=== PATIENT | male | born 1960 | race Caucasian/White ===

== ENCOUNTER 2019-10-10 02:30 | Inpatient (IN) ==
[2019-10-10] MEDS ORDERED: ASPIRIN ONE (02:43)
[2019-10-10] MEDS ORDERED: DUONEB (A & A) INH ONE (02:47)
[2019-10-10] MEDS ORDERED: SOLU-MEDROL IV ONE (02:48)
--- NOTE | 2019-10-10 02:55 | PROVIDER DOCUMENTATION ---
HPI-Respiratory General - General Chief Complaint: Shortness of Breath Stated Complaint: SOB Time Seen by Provider: 10/10/19 02:47 Source: patient Allergies/Adverse Reactions: Patient Allergies Allergy/AdvReac Type Severity Reaction Status Date / Time No Known Allergies Allergy Verified 08/06/19 15:30 Home Medications: Home Medication List Medication Instructions Recorded Confirmed Last Taken Type Cetirizine [Zyrtec] 10 mg PO DAILY #20 tab 08/06/19 Unknown Rx D-Methorphan/P-Epd/Bpm [Bromfed Dm 5 ml PO Q4H PRN #120 ml 08/06/19 Unknown Rx Liquid] Metformin HCl 1,000 mg PO DAILY 08/06/19 08/06/19 Unknown History Prednisone 20 mg PO DIRECTED #18 tab 08/06/19 Unknown Rx Rosuvastatin Calcium [Crestor] 40 mg PO DAILY 08/06/19 08/06/19 Unknown History Verapamil HCl 1 cap PO DAILY 08/06/19 08/06/19 Unknown History - History of Present Illness-Resp Nature of Presenting Problem: Patient is a 59 year old white male with history of COPD, diabetes,HTN, and tobacco abuse who presents with increasing SOB since this evening. Denies fever, chest pain, productive cough. Followed by PCP in [place]. Onset/Duration: reports: gradual Timing: reports: getting worse Review of Systems - Adult - REVIEW OF SYSTEMS - ADULT Constitutional: denies: chills, fever Eyes: reports: no symptoms reported Ears, Nose, Mouth & Throat: reports: no symptoms reported Cardiovascular: reports: orthopnea. denies: chest pain Respiratory: reports: see HPI, cough, shortness of breath Gastrointestinal: denies: abdominal pain, nausea, vomiting Genitourinary: reports: flank pain (left), hematuria Musculoskeletal: reports: no symptoms reported Integumentary: reports: no symptoms reported Neurological: reports: no symptoms reported Psychiatric: reports: no symptoms reported Endocrine: reports: no symptoms reported Hematologic/Lymphatic: reports: no symptoms reported Allergic/Immunologic: reports: no symptoms reported All Other Systems: Reviewed and Negative Past History - Adult - PAST MEDICAL HISTORY-ADULT Review of Records: reports: Old Records Reviewed, Nursing Assessment Review, Medications Reviewed, Social history reviewed & non-contributory. Major Childhood Illnesses: reports: denies history Cardiovascular: reports: HTN Respiratory: reports: COPD Gastrointestinal: reports: denies history Genitourinary: reports: denies history Musculoskeletal: reports: denies history Neurological: reports: denies history Psychiatric: reports: denies history Endocrine/Immune: reports: denies history - PRIOR SURGERIES/PROCEDURES Surgical/Procedure History: reports: tonsillectomy, other (cervical fusion, brain surgery) - IMMUNIZATION STATUS Childhood Immunizations: See Nurse Assessment Flu Vaccine: See Nurse Assessment - FAMILY HISTORY Family History: reviewed, not pertinent - SOCIAL HISTORY Smoking: less than 1 pack/day Substance Use: denies Alcohol Use Frequency: every day (1beer) Living Situation: family Physical Exam-General - PHYSICAL EXAM-ADULT Initial Vital Signs Reviewed: Yes - CONSTITUTIONAL General Appearance: alert, no apparent distress, obese - EYES Eyes: other (clear) - HEAD, EARS, NOSE, MOUTH & THROAT HENMT: moist mucous membranes - NECK Neck: non-tender, full range of motion, supple - RESPIRATORY Respiratory: no accessory muscle use, decreased breath sounds, wheezing - CARDIOVASCULAR Cardiovascular: regular rate, rhythm, other - GASTROINTESTINAL (ABDOMEN) Abdominal Exam: non tender, soft, other (obese). negative: guarding, rebound, tenderness - MUSCULOSKELETAL Back Exam: normal inspection, no CVA tenderness Extremity: normal range of motion, non-tender Peripheral Pulses: radial (R): 2+, radial (L): 2+ - SKIN Integumentary: normal color, normal turgor, warm/dry - NEUROLOGIC Neurologic: grossly normal - PSYCHIATRIC Psych/Mental Status: oriented x 3, anxious Progress - PLAN OF CARE/RESULTS Progress/Plan/Lab Results: Vital Signs - 8 hr 10/10/19 02:30 Temperature 98.2 F Pulse Rate 98 H Respiratory Rate 20 Blood Pressure 174/121 O2 Sat by Pulse Oximetry 100 10/10/19 03:03 Influenza Screen - Final Nasopharyngeal Laboratory Results - last 24 hr 10/10/19 10/10/19 10/10/19 02:45 02:45 02:45 WBC 12.02 H RBC 5.69 Hgb 17.5 Hct 51.9 MCV 91.2 MCH 30.8 MCHC 33.7 RDW Std Deviation 14.3 Plt Count 211 MPV 10.4 Immature Gran % (Auto) 0.3 Neut % (Auto) 57.6 Lymph % (Auto) 31.8 [place] % (Auto) 8.7 Eos % (Auto) 1.2 Baso % (Auto) 0.4 Immature Gran # (Auto) 0.04 Neut # (Auto) 6.92 H Lymph # (Auto) 3.82 H [place] # (Auto) 1.04 H Eos # (Auto) 0.15 Baso # (Auto) 0.05 Sodium Potassium Chloride Carbon Dioxide Anion Gap BUN Creatinine Estimated GFR/1.73 m2 BUN/Creatinine Ratio Glucose POC Glucose Calculated Osmolality Calcium Total Bilirubin AST ALT Alkaline Phosphatase Troponin T High Sens 40 H Dmg-D-Kvnyofilunh Pept 751 H Total Protein Albumin Globulin Albumin/Globulin Ratio 10/10/19 10/10/19 02:45 02:48 WBC RBC Hgb Hct MCV MCH MCHC RDW Std Deviation Plt Count MPV Immature Gran % (Auto) Neut % (Auto) Lymph % (Auto) [place] % (Auto) Eos % (Auto) Baso % (Auto) Immature Gran # (Auto) Neut # (Auto) Lymph # (Auto) [place] # (Auto) Eos # (Auto) Baso # (Auto) Sodium 141 Potassium 4.3 Chloride 105 Carbon Dioxide 25 Anion Gap 11 BUN 14 Creatinine 1.1 Estimated GFR/1.73 m2 > 60 BUN/Creatinine Ratio 13 Glucose 173 H POC Glucose 124 H Calculated Osmolality 286 Calcium 8.9 Total Bilirubin 0.50 AST 20 ALT 20 Alkaline Phosphatase 56 Troponin T High Sens Evt-K-Matcqhhgbdb Pept Total Protein 6.7 Albumin 3.9 Globulin 2.8 Albumin/Globulin Ratio 1.4 Orders Category Date Time Status Cardiac Monitoring DIRECTED Care 10/10/19 02:48 Active FSBS/Accucheck Result NOW Care 10/10/19 02:51 Active Saline Loc NOW Care 10/10/19 02:49 Active CHEST-PORTABLE [RAD] Stat Exams 10/10/19 02:49 Taken BNP [PRO B-NATRIURETIC PEPTIDE] Stat Lab 10/10/19 02:45 Completed CBC WITH ELECTRONIC DIFF [HEME] Stat Lab 10/10/19 02:45 Completed CMP [COMPREHENSIVE METABOLIC PANEL] [CHEM] Stat Lab 10/10/19 02:45 Completed D-DIMER [COAG] Stat Lab 10/10/19 04:30 Uncollected INFLUENZA SCREEN A/B Stat Lab 10/10/19 03:03 Completed TROPONIN T HIGH SENSITIVITY Stat Lab 10/10/19 02:45 Completed Albuterol 2.5MG/Ipratrop 0.5MG [Duoneb (A & A)] Med 10/10/19 02:47 Discontinued 3 ml INH NOW ONE Aspirin Med 10/10/19 02:43 Discontinued 324 mg .ROUTE .STK-MED ONE Furosemide [Lasix] Med 10/10/19 04:34 Once 40 mg IV NOW ONE Methylprednisolone Sod Succ [Solu-Medrol] Med 10/10/19 02:48 Discontinued 125 mg IV STAT ONE Aerosol Treatments Routine Oth 10/10/19 02:47 Active Aerosol Treatments Stat Oth 10/10/19 02:47 Active Oxygen Device Stat Oth 10/10/19 02:48 Active Pulse Oximetry Stat Oth 10/10/19 02:52 Active EKG [EKG] Stat Ther 10/10/19 02:48 Ordered Result Diagrams: 10/10/19 02:45 10/10/19 02:45 - REASSESSMENT Reassessment #1 Time Reassessed: 04:25 Status: improving - EKG 1 Time of EKG reading by physician:: 02:33 EKG Read and Signed by:: Uriah Shepherd Rate: 104 Rhythm: sinus tach, [place]: left QRS: other (LAE) Prior EKG Comparison: no prior EKG Comments: no STEMI - XRAY 1 XRAY Study: Chest XRAY Interpretation: increased vascular markings, no infiltrates - CONSULTS/PCP/HOSPITALIST Notification #1 *Consult/PCP/Hospitalist*: Dr. Saldana, hospitalist Time Discussed: 04:35 Consult Disposition: Admit Departure - Departure Date of Disposition Decision: 10/10/19 Time of Disposition Decision: 04:44 DIAGNOSIS: COPD exacerbation, Orthopnea, Hypoxemia Disposition: ADMITTED INPATIENT 09 Certified Medical Emergency: Emergent Condition: Stable Referrals and Follow-Ups: Yifan Smith [Primary Care Provider] - - Critical Care Note This patient required my direct & personal management of CC.: No Attestation - Physician/ MARTA Attestation Patient care was provided by Advanced Practice Provider:: No The physician spent face to face time with patient:: Yes Advanced Practice Provider documentation review:: Supervising physician onsite and consulted in the evaluation and care of this patient. The physician did have a face to face encounter with the patient.
[2019-10-10 03:06] LABS: BASO# 0.05 X1000 (0.0-0.2); BASO% 0.4 % (0.0-0.8); EOS# 0.15 X1000 (0.0-0.7); EOS% 1.2 % (0.0-10.0); HEMATOCRIT 51.9 % (42.0-52.0); HEMOGLOBIN 17.5 g/dL (14.0-18.0); IMM GRAN# 0.04 X1000 (0.0-0.04); IMM GRAN% 0.3 % (0.0-0.5); LYMPH# 3.82 X1000 (1.2-3.4); LYMPH% 31.8 % (20.5-51.1); MCH 30.8 PG (27-31); MCHC 33.7 g/dL (33-37); MCV 91.2 FL (81-99); MONO# 1.04 X1000 (0.11-0.59); MONO% 8.7 % (1.7-9.3); MPV 10.4 FL (7.4-10.4); NEUT# 6.92 X1000 (1.4-6.5); NEUT% 57.6 % (42.2-75.2); PLT 211 X1000 (130-400); RBC 5.69 XMIL (4.7-6.1); RDW 14.3 % (11.5-14.5); WBC 12.02 X1000 (4.8-10.8)
[2019-10-10 03:26] LABS: AGAP 11; ALB/GLOB RATIO 1.4; ALBUMIN 3.9 g/dL (3.5-5.0); ALKALINE PHOSPHATASE 56 U/L (32-122); BUN 14 mg/dL (8-22); CALCIUM 8.9 mg/dL (8.8-10.2); CHLORIDE 105 mmol/L (98-107); COSMO 286; CREATININE 1.1 mg/dL (0.7-1.2); ESTIMATED GFR > 60; GLUCOSE 173 mg/dL (70-104); GOT 20 U/L (10-34); GPT 20 U/L (10-44); POTASSIUM 4.3 mmol/L (3.5-5.1); SODIUM 141 mmol/L (136-145); TCO2 25 mmol/L (25-35); TOTAL PROTEIN 6.7 g/dL (6.3-8.3)
[2019-10-10] MEDS ORDERED: LASIX IV ONE (04:34)
[2019-10-10] MEDS ORDERED: ZOFRAN IV PRN (08:01)
[2019-10-10] MEDS ORDERED: TYLENOL PO PRN (08:01)
[2019-10-10] MEDS: LOVENOX SUBQ SCH (10:34)
[2019-10-10] MEDS: SOLU-MEDROL IV SCH ×2 (10:34→20:55)
[2019-10-10] MEDS: ROCEPHIN 1 GM in NS 50 ML IV SCH (10:34)
--- NOTE | 2019-10-10 10:59 | Diag Imaging Result Doc PS360 ---
EXAM: CHEST-PORTABLE INDICATION: sob TECHNIQUE: One view COMPARISON: 08/06/2019 FINDINGS: There is mild interstitial thickening with faint Jacquelyn B lines bilaterally suggesting mild interstitial edema. There is no discrete pleural fluid collection or pneumothorax. There is no evidence of cardiomegaly. IMPRESSION: Mild bilateral interstitial edema. Electronically signed by Samuel Recio 10/10/2019 10:56 AM
[2019-10-10] MEDS ORDERED: XOPENEX NEB INH PRN (14:26)
--- NOTE | 2019-10-10 15:05 | PROGRESS NOTE ---
DATE: 10/10/2019 SUBJECTIVE: Today Mr. Hanson refers to be doing fairly okay. Mr. Hanson refers that he was having some cough which progressively became associated with shortness of breath last night. He said a friend of his has an albuterol inhaler, so he took a few puffs of that and he did feel better; however, a couple hours later he continued having shortness of breath with sensation of tightness in his throat. He came to the emergency room. He was evaluated. On presentation his blood pressure was very elevated with systolic of 174 with a diastolic of 121. Today he refers to be doing slightly better. He said the shortness of breath has improved. OBJECTIVE: Current Vitals: Blood pressure is 135/83, pulse of 85, respirations 20, temperature 97.7 degrees. General Exam: Mr. Hanson is a 59-year-old, male, he is in bed. He is obese, BMI of 32.3. He is not in any cardiopulmonary distress. HEENT: Mucosa is pink and moist. Anicteric. Acyanotic. Neck: Supple. I did not see any JVD. Chest: Air entry was bilaterally reduced. There was end-expiratory wheezing in both lung mckeon. Cardiovascular: Regular rate and rhythm. No murmurs. Abdomen: Was soft, was protuberant but not tender. Bowel sounds were present. No hepatosplenomegaly. Extremities: No pedal edema. Distal pulses present. HOTEL CUSTODIAN: Patient is awake, alert, oriented. There is no focal deficit. LABORATORY DATA: WBC is 12.02, hemoglobin is 17.5. Chemistry is also reviewed, is unremarkable. The patient's troponin is 40, which is minimally elevated, proBNP is 751, which is also abnormal. IMAGING: A chest x-ray which was done showed mild bilateral interstitial edema. An EKG shows a normal sinus rhythm with multiple PVCs and a poor R-wave progression. ASSESSMENT: 1. Acute dyspnea associated with bronchospasm, of unclear etiology, presumably is undiagnosed COPD exacerbation. However, I think we will also need to rule out cardiac causes. Mr. Hanson is currently on nebulization, antibiotics which we have added azithromycin for atypicals, and on steroids. We will get a repeat chest x-ray in the morning. We will also get a CTA of the lungs to rule out any possible PE and also get a very close view of the lung anatomy. We will get an echocardiogram to check on ejection fraction as well, since the proBNP is slightly elevated. Mr. Hanson has a lot of cardiac risk factors, which I think it is plausible to evaluate his cardiac health. 2. Diabetes mellitus. Patient is only on metformin. He said he was on a [place]je[place] at some point; however, after losing more than 60 pounds, his A1c was far below 5 so has been put on only metformin recently. 3. Tobacco use and abuse. Patient has been counseled. 4. Hypertension. 5. Dyslipidemia. In general I think Mr. Hanson presented with acute dyspnea with bronchospasm, which could be a COPD exacerbation or a cardiac event. We are going to do a CT of the lungs. We will get an echo of the heart. Repeat a chest x-ray and follow up on her his troponins as well as the proBNP, and then go from there. We will give further recommendations as results become available. cc: Willian Elliott MD
[2019-10-10] MEDS: ZITHROMAX 500 MG/NS 500 MG/250 ML IVPB IV SCH (16:00)
[2019-10-10] MEDS: HUMULIN R SUBQ SCH ×2 (16:00→20:55)
[2019-10-10] MEDS ORDERED: HUMULIN R SUBQ SCH (16:00)
[2019-10-10] MEDS: XOPENEX NEB INH SCH ×2 (16:07→22:58)
--- NOTE | 2019-10-10 17:47 | EKG Report ---
Test Performed on : 10/10/2019 02:31:09 AM Test Reason : pain Blood Pressure : / mmHG Vent. Rate : 104 BPM Atrial Rate : 104 BPM P-R Int : 142 ms QRS Dur : 090 ms QT Int : 380 ms P-R-T Axes : 056 -25 077 degrees QTc Int : 499 ms Sinus tachycardia. with frequent premature ventricular complexes. Possible Left atrial enlargement Possible Anterior infarct , age undetermined Abnormal ECG No previous ECGs available Unconfirmed Result
--- NOTE | 2019-10-10 18:30 | Diag Imaging Result Doc PS360 ---
EXAM: CT ANGIOGRM PULMONARY ARTERIES INDICATION: chest pain with SOB TECHNIQUE: This exam was performed using automated exposure control, adjustment of mA or kV according to patient size, and/or use of iterative reconstruction technique. Thin section axial images and 3-D MIPS were obtained. COMPARISON: None. FINDINGS: There is no evidence of pulmonary embolism. There is no evidence of aortic dissection or aneurysm. There is no cardiomegaly. There are a few calcified subcarinal lymph nodes indicating prior granulomatous disease. There are other small shotty nonspecific mediastinal and hilar lymph nodes. There are trace bilateral pleural effusions and there is mild bibasilar atelectasis. There is very mild interstitial thickening at both lung bases suggesting minimal edema. Limited views of the upper abdomen reveals hepatic steatosis. IMPRESSION: 1.Minimal interstitial edema at the lung bases and trace bilateral pleural effusions with adjacent atelectasis. 2.No evidence of pulmonary embolism. 3.Other incidental/nonacute findings detailed above. Electronically signed by Samuel Recio 10/10/2019 6:28 PM
--- NOTE | 2019-10-10 21:58 | HISTORY AND PHYSICAL ---
CHIEF COMPLAINT: Shortness of breath. HISTORY OF PRESENT ILLNESS: This is a 59-year-old male with a history of COPD, diabetes mellitus, hypertension, tobacco abuse, who presents with increasing shortness of breath. He denies fever, chest pain, productive cough, nausea, vomiting, diarrhea. He came in last night after having progressive shortness of breath. His laboratory data was grossly normal. He did have minimal wheeze on examination in the emergency room. He was originally given some Lasix for mild interstitial edema. The patient started resting more comfortably after having Lasix and nebulizer treatment. He was also given a dose of steroids. He will be admitted for further evaluation and treatment. PAST MEDICAL HISTORY: See HPI. PREVIOUS SURGICAL HISTORY: Cervical fusion. Also had brain surgery and tonsillectomy. SOCIAL HISTORY: 3/4 of a pack a day smoker. One beer nightly. No illicit drugs. FAMILY HISTORY: Positive for coronary artery disease and hypertension. ALLERGIES: No known drug allergies. HOME MEDICATIONS: A list of home medications has not been reconciled. Order was placed for Nursing to reconcile home medications. These will be restarted when appropriate. REVIEW OF SYSTEMS: Fourteen-point review of systems conducted with the patient. Pertinent positives listed above in the HPI. All other systems reviewed and found to be negative. PHYSICAL EXAMINATION: VITAL SIGNS: Temperature 98.2, pulse 98, respirations 20, blood pressure 174/121, oxygen saturation 100% on 2 L nasal cannula. GENERAL: A pleasant 59-year-old male lying in the ER stretcher, answered all questions appropriately. He is in no acute distress. HEENT: Head is atraumatic, normocephalic. Pupils equal, round, reactive to light. Extraocular eye movement is intact. Sclera is anicteric. Conjunctiva is pink. Oral mucosa is moist. NECK: Supple. No JVD. No thyromegaly. Trachea is midline. No cervical lymphadenopathy. CARDIAC: S1, S2 appreciated. No murmurs, gallops, rubs. LUNGS: Mild expiratory wheezing bilaterally. No rhonchi. No rales. Symmetric rise and fall with respirations. ABDOMEN: Soft, nondistended, nontender. Bowel sounds present all 4 quadrants, normoactive. No pulsatile mass. No organomegaly. EXTREMITIES: No clubbing, cyanosis or edema. Two-plus pedal pulses bilaterally. GENITOURINARY: No bladder distention. Patient voids. Otherwise deferred. NEUROLOGICAL: Alert and oriented times 3. Cranial nerves 2 through 12 grossly intact. DIAGNOSTIC DATA: Chest x-ray shows mild interstitial edema in bilateral lungs. LABORATORY DATA: WBC 12.02. Hemoglobin 17.5. Hematocrit 51.9. Platelet count 211. Sodium 141. Potassium 4.3. Chloride 105. Carbon dioxide 25. BUN 14. Creatinine 1.1. Glucose 173. ASSESSMENT: 1. Chronic obstructive pulmonary disease with exacerbation. 2. Hypertension. 3. Diabetes mellitus type 2. 4. Hyperlipidemia. PLAN: Admit patient to the medical floor. Hobs. Solu-Medrol 40 mg IV q.8 hours times 3 doses. We will start Rocephin in case it is a bacterial cause for his COPD exacerbation. He received 1 dose of Lasix. We will not repeat at this time. We will continue to monitor. We will restart his home medications once they are reconciled. Further recommendations per patient clinical course. Dictated by JULIETA Carmona for Edmond Saldana MD I have performed a face to face diagnostic evaluation. Labs/Xrays- reviewed. Exam- Chest - rhonchi, CV- regular A/P- COPD Exacerbation- Admit, duo nebs,solu-medrol. Dr. Saldana cc: JULIETA Carmona MD [facility]
[2019-10-11] MEDS: HUMULIN R SUBQ SCH ×5 (02:23→23:50)
[2019-10-11] MEDS: SOLU-MEDROL IV SCH ×3 (03:02→20:42)
[2019-10-11] MEDS ORDERED: PNEUMOVAX 23 IM ONE (06:14)
[2019-10-11 07:57] LABS: HEMOGLOBIN A1C 8.8 % (4.8-6.0)
[2019-10-11 08:00] LABS: CHOLESTEROL 215 mg/dL (0-200); HDL 35 mg/dL (35-55); LDL 143 mg/dL; TRIGLYCERIDES 187 mg/dL (39-160); VLDL 37 mg/dL
[2019-10-11 08:29] LABS: AGAP 13; BUN 22 mg/dL (8-22); CHLORIDE 101 mmol/L (98-107); COSMO 294; CREATININE 1.1 mg/dL (0.7-1.2); ESTIMATED GFR > 60; GLUCOSE 335 mg/dL (70-104); POTASSIUM 4.8 mmol/L (3.5-5.1); SODIUM 139 mmol/L (136-145); TCO2 25 mmol/L (25-35)
[2019-10-11] MEDS ORDERED: ISOPTIN SR PO SCH (09:00)
[2019-10-11] MEDS: XOPENEX NEB INH SCH ×3 (09:18→23:53)
--- NOTE | 2019-10-11 09:36 | EKG Report ---
Test Performed on : 10/11/2019 06:16:37 AM Test Reason : Afib Blood Pressure : / mmHG Vent. Rate : 102 BPM Atrial Rate : 102 BPM P-R Int : 150 ms QRS Dur : 100 ms QT Int : 384 ms P-R-T Axes : 058 -05 079 degrees QTc Int : 500 ms Sinus tachycardia. Otherwise normal ECG When compared with ECG of 10-OCT-2019 02:31, (Unconfirmed) premature ventricular complexes. are no longer present Confirmed by Gamal Gordillo MD ([id number]) on 10/14/2019 12:12:52 PM
[2019-10-11] MEDS: LOVENOX SUBQ SCH (09:47)
[2019-10-11] MEDS: ROCEPHIN 1 GM in NS 50 ML IV SCH (09:47)
[2019-10-11] MEDS: LANTUS INSULIN SUBQ SCH (09:49)
[2019-10-11] MEDS: CRESTOR PO SCH (09:49)
--- NOTE | 2019-10-11 12:42 | PROGRESS NOTE ---
DATE: 10/11/2019 SUBJECTIVE: This morning, Mr. Hanson refers to be doing well. Denies any new complaints. He is still coughing and has some residual shortness of breath. OBJECTIVE: Vital Signs: Blood pressure is 136/93, pulse of 103, respirations 20, temperature is 97.3 degrees. General: Mr. Hanson is a 59-year-old, gentleman. He is in bed. No distress. HEENT: Mucosa is pink and moist. Anicteric. Acyanotic. Neck: Supple. Chest: Air entry is bilaterally reduced. There is still diffuse end expiratory wheezing in both lung mckeon. Cardiovascular: Regular rate and rhythm. No murmurs, no rubs, no gallops. GI: Abdomen is soft. It is protuberant, but nontender. Bowel sounds present. No hepatosplenomegaly. Extremities: No pedal edema. LINUX SYSTEMS ADMINISTRATOR: The patient is awake, alert, and oriented. There is no focal deficit. LABORATORY DATA: Chemistry is unremarkable. Glucose is 335, with A1c of 8.8. Lipid panel is also evaluated, consistent with dyslipidemia. MEDICATIONS: Current medications have all been reviewed. No changes. ASSESSMENT: 1. Acute dyspnea associated with bronchospasm, presumably from chronic obstructive pulmonary disease exacerbation. The patient is on bronchodilation therapy, antimicrobial, and steroids. We are going to continue to monitor. If after another 24 hours, Mr. Hanson is not improved, I think it would be reasonable to get Pulmonary to see him as well. 2. Pulmonary edema with pleural effusion. There is a suspicion that Mr. Hanson could potentially also have congestive heart failure. ProBNP was slightly elevated. Echocardiogram has been requested, and we are pending the results. 3. Diabetes mellitus. Presenting A1c is 8.8. The patient was on metformin at home. This is withheld. He is currently on insulin regimen. I think he will be okay to go home on metformin with another oral hypoglycemic once he is stable for discharge. 4. Tobacco use and abuse. The patient has been counseled. 5. Hypertension. The patient was on verapamil, which according to him was for blood pressure control. Unfortunately, he said he cannot afford it at home, so he wants it to be changed. We will discontinue the verapamil, and put him on low-dose losartan as well as Coreg. 6. Dyslipidemia. The patient has been started on Crestor. In general, I think Mr. Hanson is doing well. He presented because of dyspnea with bronchospasm, which we think is mainly chronic obstructive pulmonary disease exacerbation. However, I think cardiac cause will need to be ruled out, especially because he has bilateral pleural effusion. Echocardiogram has been ordered. We are pending on the results of that. cc: Willian Elliott MD
[2019-10-11] MEDS: NICODERM PATCH TD SCH (12:59)
[2019-10-11] MEDS: LASIX IV SCH ×2 (14:00→23:49)
[2019-10-11] MEDS: COZAAR PO SCH (14:43)
--- NOTE | 2019-10-11 15:12 | ECHO REPORT ---
ORDER DATE: 10/10/2019 INDICATION: Shortness of breath, COPD. FINDINGS: 1. Right atrium appears normal in size. 2. Mild tricuspid regurgitation. Insufficient data to accurately estimate RV systolic pressure. 3. Normal RV size and systolic function. 4. No significant pulmonic insufficiency. 5. Normal left atrial size with a volume index of 21. 6. No mitral valve prolapse. Mild mitral regurgitation. No mitral stenosis. 7. The left ventricle does appear to be somewhat dilated with an end-diastolic dimension of 5.5 cm. Mild left ventricular hypertrophy with a posterior and interventricular septal thickness of 1.2 and 1.3 cm respectively. There is reduction in LV systolic function with an estimated EF of 40% with global hypokinesis. 8. Aortic valve opens well. No evidence of stenosis or insufficiency. 9. Aorta appears normal in visualized segments. 10. No pericardial effusion seen. cc: MD Willian Javed MD
[2019-10-11] MEDS: ZITHROMAX 500 MG/NS 500 MG/250 ML IVPB IV SCH (15:30)
[2019-10-11] MEDS: COREG PO SCH (20:42)
[2019-10-12] MEDS: HUMULIN R SUBQ SCH ×5 (01:31→22:58)
[2019-10-12] MEDS: SOLU-MEDROL IV SCH ×2 (04:31→11:57)
[2019-10-12 07:24] LABS: HEMATOCRIT 48.3 % (42.0-52.0); HEMOGLOBIN 15.6 g/dL (14.0-18.0); MCHC 32.3 g/dL (33-37); MCV 92.9 FL (81-99); RBC 5.2 XMIL (4.7-6.1); RDW 14.4 % (11.5-14.5); WBC 18.26 X1000 (4.8-10.8)
[2019-10-12 07:52] LABS: AGAP 13; ALBUMIN 3.2 g/dL (3.5-5.0); BUN 26 mg/dL (8-22); CALCIUM 8.5 mg/dL (8.8-10.2); CHLORIDE 103 mmol/L (98-107); COSMO 294; ESTIMATED GFR > 60; GLUCOSE 277 mg/dL (70-104); PHOSPHORUS 3.7 mg/dL (2.7-4.5); POTASSIUM 4.5 mmol/L (3.5-5.1); SODIUM 140 mmol/L (136-145); TCO2 24 mmol/L (25-35)
[2019-10-12] MEDS: NICODERM PATCH TD SCH (09:01)
[2019-10-12] MEDS: LOVENOX SUBQ SCH (09:03)
[2019-10-12] MEDS: LANTUS INSULIN SUBQ SCH (09:03)
[2019-10-12] MEDS: ROCEPHIN 1 GM in NS 50 ML IV SCH (09:04)
[2019-10-12] MEDS: CRESTOR PO SCH (09:05)
[2019-10-12] MEDS: COREG PO SCH ×2 (09:05→22:58)
[2019-10-12] MEDS: COZAAR PO SCH (09:05)
[2019-10-12] MEDS: XOPENEX NEB INH SCH ×3 (10:44→23:03)
[2019-10-12] MEDS: LASIX IV SCH ×3 (11:58→22:56)
[2019-10-12] MEDS ORDERED: HUMULIN R SUBQ ONE (14:12)
[2019-10-12] MEDS: ZITHROMAX 500 MG/NS 500 MG/250 ML IVPB IV SCH (14:20)
--- NOTE | 2019-10-12 14:47 | CARDIOLOGY CONSULTATION ---
DATE: 10/12/2019 REASON FOR CONSULTATION: Cardiology was consulted for shortness of breath, LV dysfunction. HISTORY OF PRESENT ILLNESS: Mr. Jame Hanson is a 59-year-old, gentleman with history of hypertension, diabetes, tobacco abuse. He comes in with complaints of increasing shortness of breath. He says that his shortness of breath suddenly worsened on Saturday. Had his friend's inhaler, which he took, and that helped his symptoms. However, progressively it got worse. Came to the emergency room, became orthopneic, and he was admitted. He had a CT scan done, which revealed mild heart failure. There was no pulmonary embolism. He was given Lasix. He also was diagnosed to have COPD, started on inhalers and IV antibiotics. He also had some coughing associated with this worsening of his symptoms, noted to have significant wheezing in the emergency room. He had seen his family physician about 3 to 4 months back in [place]. However, the patient complains of having dyspnea on significant exertion over the last 2 years, and in the last 6 months, he has noticed when he exerts significantly, he has retrosternal chest discomfort. With minimal exertion, he does not have chest discomfort. Otherwise, he is very active, works in a company in [place]. There is no history of palpitations. There is no dizziness or syncope. PAST MEDICAL HISTORY: Hypertension, diabetes, COPD (recent diagnosis). SOCIAL HISTORY: The patient is a smoker, smokes about 3/4 of a pack of cigarettes daily, has smoked for at least 40 years. There is no history of alcohol or illicit drug abuse. PAST SURGICAL HISTORY: 1. Cervical fusion. 2. Intracranial surgery for a tumor removed in the 1970s. 3. Tonsillectomy. HOME MEDICATIONS: Include: 1. Metformin 1000 mg a day. 2. Crestor 40 mg a day. 3. Verapamil 340 mg a day. CURRENT MEDICATIONS: Include: 1. Coreg 3.125 mg. 2. Verapamil has been discontinued. 3. Losartan 25 mg a day. 4. Insulin Lantus 15 subcutaneously, insulin regular as needed. 5. Nebulizers. 6. Methylprednisone 40 mg IV every 8 hours. 7. Nicotine patch. 8. Ceftriaxone and Zithromax intravenously. PHYSICAL EXAMINATION: Vital Signs: Blood pressure was 135/90. The patient was afebrile. Cardiovascular: Jugular sinus pressure was normal. First and second heart sounds were heard. There was no S3 gallop. Respiratory: Scattered inspiratory crepitations in addition to wheezing. Abdomen: Obese, soft, nontender. There was no guarding or rigidity. Bowel sounds were heard. Central Nervous System: Alert, oriented, was moving all 4 extremities. HEENT: Atraumatic, normocephalic. Pupils were reacting to light. IMAGING AND LABORATORY DATA: 1. Laboratory examination revealed flu screen was negative. 2. Sodium 140, potassium 4.5, BUN 26, creatinine 1.0. ProBNP abnormal at 751. 3. Troponin T high-sensitivity was negative. 4. WBC 12.0, hemoglobin 17.5, hematocrit 51.9, platelet count of 211,000. 5. CT scan of his chest revealed minimal interstitial edema, bilateral pleural effusion, no pulmonary embolism. 6. Electrocardiogram revealed normal sinus rhythm. Premature ventricular beats were noted. Left atrial enlargement. Poor R-wave progression. 7. Echocardiogram revealed ejection fraction of 40% with mild global hypokinesis. ASSESSMENT AND PLAN: 1. Mr. Jame Hanson is a 59-year-old, gentleman with history of hypertension, diabetes, chronic smoking, recent diagnosis of chronic obstructive pulmonary disease, who is admitted with increasing shortness of breath and orthopnea. From a cardiac standpoint, he has been having exertional chest discomfort for the last 6 months, and shortness of breath on significant exertion for the last 2 years. He is a chronic smoker, having smoked about 3/4 of a pack of cigarettes for the last 40 years. He has left ventricular dysfunction. From a cardiac standpoint, the patient has ongoing anginal symptoms with left ventricular dysfunction, hypertension, and diabetes. Given this, I have recommended that he undergo a left heart catheterization. Risks, benefits, and alternatives were explained. The patient will be set up for a left heart catheterization in the morning if his pulmonary function has improved. 2. I will give him an extra dose of Lasix, and increase it to 40 mg intravenously twice daily. 3. Given his left ventricular dysfunction, he is on Coreg and losartan, and his verapamil has been discontinued. 4. Diabetes. Continue with medications as planned. 5. Hyperlipidemia. He has been on Crestor 20. I would recommend continuing Crestor. I will add aspirin 81 mg to his medical regimen. 6. He is a smoker, has chronic obstructive pulmonary disease, has wheezing as well, in addition to inspiratory crepitations. He is on antibiotics and nebulizers. I have not made any changes. White count increases secondary to corticosteroids which have been added. Thank you for the consult. Will follow hospital course. cc: Parminder Hamilton MD
--- NOTE | 2019-10-12 14:53 | PROGRESS NOTE ---
DATE: 10/12/2019 SUBJECTIVE: The patient states that he is feeling better, but we have a new echocardiogram that showed an ejection fraction of 40% with some global hypokinesis. He has been complaining of some chest pain even before coming to the hospital. He has a history of diabetes with a hemoglobin A1c of 8.8. On top of that, he is a smoker, so it sounds more cardiac related to me. I went ahead and consulted Cardiology Department for evaluation. OBJECTIVE: Vital Signs: Temperature 97.8 degrees, pulse 50, respiratory rate 16, blood pressure 135/90, oxygen saturation 99 on 3 L of nasal cannula. HEENT: Head normocephalic. No trauma. PERRLA. Neck: Supple. No JVD. No masses. Central trachea. Chest: Clear to auscultation. Some crepitus at the bases. Decreased breath sounds globally. No wheezing today. Abdomen: Soft, nontender, nondistended. No hepatosplenomegaly. Protuberant. Extremities: No edema, no clubbing, no cyanosis. Neurological: The patient is awake, alert. He is oriented x3. No focal deficits. LABORATORY DATA: WBC 18.2, hemoglobin 15.6, hematocrit 48.3, platelets 213,000. Sodium 140, potassium 4.5, chloride 103, bicarbonate 24, BUN 26, creatinine 1, glucose 277, calcium 8.5. Phosphorus 3.7. ASSESSMENT AND PLAN: 1. Shortness of breath with pulmonary edema and some chest pain that actually has been happening even before admission, with a new echocardiogram that showed an ejection fraction of 40%. Cardiology Department evaluated this patient. They will do a cardiac catheterization tomorrow. Nothing by mouth after midnight. 2. New-onset congestive heart failure. He has been placed on beta blockers, angiotensin-receptor blockers, and Lasix. Cardiology on board. 3. Likely chronic obstructive pulmonary disease exacerbation. I have decreased the dose of the steroids because he is not wheezing today. He does have prolonged expiratory phase though. We do not have a formal pulmonary function test on this patient, but given his history of smoking of 1-1/2 packs a day, likely this patient has chronic obstructive pulmonary disease. Continue with the same management. I will decrease the dose of the steroids. 4. Type 2 diabetes with a hemoglobin A1c of 8.8. Continue with the same management for now. Blood sugar has been more elevated due to steroids. 5. Tobacco abuse. This patient has been highly advised against tobacco use. I will continue with daily cessation education. 6. Hypertension. Continue with the same management for now. He has been placed on losartan and Coreg. 7. Dyslipidemia. We have started this patient on Crestor. cc: Dick Turcios MD
[2019-10-12] MEDS ORDERED: BENADRYL PO ONE (22:31)
[2019-10-13 06:59] LABS: BASO# 0.01 X1000 (0.0-0.2); BASO% 0.1 % (0.0-0.8); HEMATOCRIT 51.2 % (42.0-52.0); HEMOGLOBIN 16.3 g/dL (14.0-18.0); IMM GRAN# 0.07 X1000 (0.0-0.04); IMM GRAN% 0.4 % (0.0-0.5); LYMPH# 3.84 X1000 (1.2-3.4); LYMPH% 22.4 % (20.5-51.1); MCH 29.6 PG (27-31); MCHC 31.8 g/dL (33-37); MCV 93.1 FL (81-99); MONO# 1.35 X1000 (0.11-0.59); MONO% 7.9 % (1.7-9.3); MPV 10.7 FL (7.4-10.4); NEUT# 11.89 X1000 (1.4-6.5); NEUT% 69.2 % (42.2-75.2); PLT 214 X1000 (130-400); RDW 14.4 % (11.5-14.5); WBC 17.16 X1000 (4.8-10.8)
[2019-10-13 07:04] LABS: INR 0.99; PROTIME 13.2 Seconds (11.0-16.0)
[2019-10-13 07:15] LABS: CALCIUM 8.8 mg/dL (8.8-10.2); CREATININE 1.5 mg/dL (0.7-1.2)
[2019-10-13] MEDS: HUMULIN R SUBQ SCH ×4 (08:04→20:59)
[2019-10-13] MEDS: SODIUM BICARBONATE 8.4% 150 MEQ in D5W 1,000 ML IV SCH (08:47)
[2019-10-13] MEDS: NICODERM PATCH TD SCH (08:52)
[2019-10-13] MEDS: LOVENOX SUBQ SCH (08:56)
[2019-10-13] MEDS: ROCEPHIN 1 GM in NS 50 ML IV SCH (08:56)
[2019-10-13] MEDS: COREG PO SCH ×2 (08:59→20:59)
[2019-10-13] MEDS: ASPIRIN PO SCH (08:59)
[2019-10-13] MEDS: CRESTOR PO SCH (08:59)
[2019-10-13] MEDS ORDERED: SOLU-MEDROL IV SCH (09:00)
[2019-10-13] MEDS: XOPENEX NEB INH SCH ×3 (09:49→22:59)
--- NOTE | 2019-10-13 10:01 | PROGRESS NOTE ---
DATE: 10/13/2019 SUBJECTIVE: The patient seems to be stable. His BUN and creatinine increased compared with yesterday. I will stop the Lasix and also I will hold the losartan for now. Cardiology is planning to do a left heart catheterization today. He has been placed on IV fluids with D5, bicarb by cardiology department. We will monitor this patient closely. He has a negative balance of 8.1 L. OBJECTIVE: Vital Signs: Temperature 97.7 degrees, pulse 77, respiratory rate 18, blood pressure 130/91, oxygen saturation 100% on 2 L of nasal cannula. HEENT: Head normocephalic. No trauma. PERRLA. Neck: Supple. No JVD. No masses. Central trachea. Chest: Clear to auscultation. No wheezing. No rales. Abdomen: Soft, nontender, nondistended. Protuberant. No hepatosplenomegaly. Extremities: No edema, no clubbing, no cyanosis. Neurological Examination: The patient is awake and alert. He is oriented x3. No focal deficits. Laboratory: WBCs 17, hemoglobin 16.3, hematocrit 51.2, platelets 214,000. Sodium 141, potassium 5, chloride 100, bicarbonate 32, BUN 32, creatinine 1.5, glucose 280, calcium 8.8. ASSESSMENT AND PLAN: 1. Shortness of breath with pulmonary edema and some chest pain that actually has been happening even before admission. New echocardiogram showed an ejection fraction of 40%. Cardiology department evaluated this patient. He will go for a cardiac catheterization today. 2. New onset congestive heart failure. He has been placed on beta blockers, angiotensin-receptor blockers, and Lasix. I will hold the Lasix for now as well as the beta oliver because of his acute kidney injury. 3. Acute kidney injury, probably due to diuretics. This patient responded to the furosemide really well so we need to be careful about it. 4. Type 2 diabetes with a hemoglobin A1c of 8.8. Continue with the same management for now. Elevated glucose level is likely due to steroids. 5. Likely chronic obstructive pulmonary disease exacerbation. I will stop the steroids today because this patient's breathing is much better. He is not wheezing. Continue breathing treatments, though. 6. Tobacco use. This patient has been highly advised against tobacco use. I will continue with daily cessation education. 7. Hypertension. Continue with the same management for now. 8. Dyslipidemia. Continue with Crestor. cc: Dick Turcios MD
[2019-10-13] MEDS ORDERED: HEPARIN 1000 UNITS/NS 2,000 UNIT/1,000 ML IV.SOLN ONE (10:23)
[2019-10-13] MEDS ORDERED: NS 1,000 ML ONE (11:22)
[2019-10-13] MEDS ORDERED: ANESTHESIA PB SET 88 IN 5742 ONE (11:22)
[2019-10-13] MEDS ORDERED: DEMEROL ONE (11:27)
[2019-10-13] MEDS ORDERED: VERSED ONE (11:28)
--- NOTE | 2019-10-13 12:50 | CARDIAC CATH REPORT ---
DATE: 10/13/2019 PROCEDURES PERFORMED: 1. Left heart catheterization. 2. Selective bilateral coronary arteriography. 3. Left ventriculography. HISTORY: This is a 59-year-old male who presented to the emergency room with dyspnea, chest discomfort. Noninvasive evaluation suggests cardiomyopathy. Coronary calcification is noted on CT of the chest. Heart catheterization is recommended to define etiology of his congestive heart failure and cardiomyopathy. The benefits, risks and complications were discussed. He understood and requested to proceed. DESCRIPTION OF PROCEDURE: The patient came into the cardiac director geophysical laboratory in the fasting state. The right groin was prepped and draped in a sterile fashion, anesthetized with lidocaine 1%. A 6- Palauan sheath was inserted in the right femoral artery by following modified Seldinger technique. Two doses of Versed 1 mg were given, and 1 dose of Demerol 25 mg was given. The patient received a 6-Palauan sheath into the right femoral artery by following the modified Seldinger technique. The coronary vessels were opacified with a 6-Palauan left Rissa 4 and right Rissa 4 catheters. The right Rissa catheter was used to opacify the ventricle. At the conclusion of the procedure, the femoral artery was opacified, and unfortunately the puncture had been made actually below the bifurcation, and therefore we could not deploy and Angio-Seal device. Hemostasis was accomplished by hand compression. The patient tolerated the procedure well. SUMMARY OF HEMODYNAMIC FINDINGS: Central aortic pressure is 125/84. Left ventricular pressure 117/34. Post LV gram is 118/33. Final central aortic pressure is 119/74. This indicates left ventricular diastolic dysfunction. SUMMARY OF ANGIOGRAPHIC FINDINGS: 1. Left main coronary artery. The left main coronary artery is anatomically normal and divides into LAD and circumflex. 2. Left anterior descending coronary artery. This vessel shows mild plaque proximally. It gives rise to the diagonal branch that appears to be small and possibly diffusely diseased. The LAD proper tapers down to a very small caliber vessel, and it barely reaches the apex of the left ventricle. 3. Circumflex. The circumflex is nondominant and gives rise to the sinus jesus branch. It then gives rise to an obtuse marginal vessel and a small AV branch. Just before the bifurcation, the circumflex shows a discrete 70% stenosis. This lesion may be significant for focal intervention. 4. Right coronary artery. The right coronary artery is a dominant vessel. It shows a plaque of about 30% in its proximal to midsection. The remaining of the right coronary artery shows mild plaquing. Distally it gives rise to a good size posterior descending branch and a good size posterolateral interventricular vessel. No significant lesions are noted in the distal vessels. LEFT VENTRICULOGRAM: Left ventriculogram in the 30 degree LOZADA projection and 60 degree YORUBA projection reveals enlargement of the left ventricular chamber with significant impairment of systolic function. Ejection fraction appears to be in the order of 25% to 30%. No significant mitral regurgitation appears to be present. OPACIFICATION OF THE RIGHT FEMORAL ARTERY: The right femoral artery appears to be unremarkable. The puncture was made in the superficial vessel; therefore, Angio-Seal device was not deployed. SUMMARY: This study shows: 1. Severe 1-vessel coronary artery disease with a significant stenosis of the circumflex which is a small, nondominant vessel. The LAD shows mild diffuse disease, and the right coronary artery shows a 30% to 40% proximal plaque. 2. Enlarged left ventricle with severely impaired systolic function. Ejection fraction 25% to 30%. 3. Significant diastolic dysfunction with elevated LVEDP at 33 to 34 mmHg. 4. No mitral regurgitation and no aortic stenosis. 5. Unremarkable right femoral artery. RECOMMENDATIONS: The patient will be treated medically as a case of congestive heart failure. Down the road, we will discuss whether or not he may need intervention to the circumflex coronary artery. He will follow up with the Cardiology Team. The patient tolerated the procedure well. cc: Nehemias Page MD
--- NOTE | 2019-10-13 13:29 | EKG Report ---
Test Performed on : 10/13/2019 1:11:16 PM Test Reason : s/p [facility] Blood Pressure : / mmHG Vent. Rate : 080 BPM Atrial Rate : 080 BPM P-R Int : 142 ms QRS Dur : 092 ms QT Int : 430 ms P-R-T Axes : 065 -22 087 degrees QTc Int : 495 ms Normal sinus rhythm. Possible Anterior infarct , age undetermined Abnormal ECG When compared with ECG of 11-OCT-2019 06:16, (Unconfirmed) No significant change was found Confirmed by Gamal Gordillo MD ([id number]) on 10/14/2019 12:15:18 PM
[2019-10-13] MEDS: LANTUS INSULIN SUBQ SCH (13:41)
[2019-10-13] MEDS: MUCOMYST 20% PO SCH ×2 (13:42→21:00)
[2019-10-13] MEDS: ZITHROMAX 500 MG/NS 500 MG/250 ML IVPB IV SCH (16:20)
[2019-10-13] MEDS: NS NEB INH SCH ×2 (16:43→23:00)
[2019-10-14] MEDS: SODIUM BICARBONATE 8.4% 150 MEQ in D5W 1,000 ML IV SCH (02:14)
[2019-10-14] MEDS: HUMULIN R SUBQ SCH ×4 (06:15→21:52)
[2019-10-14 06:33] LABS: EOS# 0.05 X1000 (0.0-0.7); EOS% 0.4 % (0.0-10.0); HEMATOCRIT 52.4 % (42.0-52.0); HEMOGLOBIN 16.8 g/dL (14.0-18.0); IMM GRAN# 0.05 X1000 (0.0-0.04); IMM GRAN% 0.4 % (0.0-0.5); LYMPH# 3.94 X1000 (1.2-3.4); LYMPH% 32.6 % (20.5-51.1); MCH 29.3 PG (27-31); MCHC 32.1 g/dL (33-37); MCV 91.4 FL (81-99); MONO# 1.09 X1000 (0.11-0.59); MPV 10.7 FL (7.4-10.4); NEUT# 6.95 X1000 (1.4-6.5); NEUT% 57.6 % (42.2-75.2); PLT 196 X1000 (130-400); RBC 5.73 XMIL (4.7-6.1); RDW 14.3 % (11.5-14.5); WBC 12.08 X1000 (4.8-10.8)
[2019-10-14 07:41] LABS: AGAP 10; BUN 26 mg/dL (8-22); CALCIUM 8.5 mg/dL (8.8-10.2); CHLORIDE 99 mmol/L (98-107); COSMO 291; CREATININE 0.9 mg/dL (0.7-1.2); ESTIMATED GFR > 60; GLUCOSE 260 mg/dL (70-104); POTASSIUM 3.5 mmol/L (3.5-5.1); SODIUM 139 mmol/L (136-145); TCO2 30 mmol/L (25-35)
[2019-10-14] MEDS: ROCEPHIN 1 GM in NS 50 ML IV SCH (08:34)
[2019-10-14] MEDS: NICODERM PATCH TD SCH (08:34)
[2019-10-14] MEDS: CRESTOR PO SCH (08:34)
[2019-10-14] MEDS: ASPIRIN PO SCH (08:34)
[2019-10-14] MEDS: COREG PO SCH ×2 (08:34→20:45)
[2019-10-14] MEDS: LOVENOX SUBQ SCH (08:41)
[2019-10-14] MEDS: MUCOMYST 20% PO SCH ×2 (08:41→22:45)
--- NOTE | 2019-10-14 08:50 | PROGRESS NOTE ---
DATE: 10/14/2019 SUBJECTIVE: The patient seems to be stable. BUN and creatinine are getting better. I have been holding the Lasix and also the losartan for now. Cardiology Department did a cardiac cath yesterday. The patient has some problems with the circumflex, and also it looks like the ejection fraction is worse than the one seen in the echocardiogram. I will let Cardiology Department decide about the further treatment. I will monitor. OBJECTIVE: Vital Signs: Temperature 97.7 degrees, pulse 58, respiratory rate 20, blood pressure 142/66, oxygen saturation 97% on 2 L of nasal cannula. HEENT: Head normocephalic. No trauma. PERRLA. Neck: Supple. No JVD. No masses. Central trachea. Chest: Clear to auscultation. No wheezing. No rales. Abdomen: Soft, nontender, nondistended. Protuberant. No hepatosplenomegaly. Extremities: No edema, no clubbing, no cyanosis. Neurological: The patient is awake, alert. He is oriented x3. No focal deficits. LABORATORY DATA: WBC 12, hemoglobin 16.8, hematocrit 52.4, platelets 194,000. Sodium 139, potassium 3.5, chloride 99, bicarbonate 30, BUN 26, creatinine 0.9, glucose 260, calcium 8.5. Magnesium 2. ASSESSMENT AND PLAN: 1. Shortness of breath with pulmonary edema and some chest pain that actually has been happening even before admission on and off. Echocardiogram showed an ejection fraction of 40%, and this is new for the patient, and actually he got a cardiac catheterization yesterday that showed ejection fraction lower than that. Cardiology on board. Will continue to monitor. 2. New-onset congestive heart failure. I have been holding the angiotensin-receptor blockers and Lasix for now because of his acute kidney injury. I will let Cardiology Department decide further treatment. Continue with beta oliver. He seems to be stable. 3. Acute kidney injury, probably due to diuretics. This is better today. 4. Type 2 diabetes with hemoglobin A1c of 8.8. I have increased the dose of Lantus today from 15 to 25. Let us see how he does. On top of that, I stopped already the steroids, so hopefully the blood sugar will be better controlled. 5. Likely chronic obstructive pulmonary disease exacerbation. I have stopped the steroids because he is breathing much better. He has no wheezing. Continue with breathing treatment. 6. Tobacco abuse. This patient has been highly advised against tobacco use. I will continue with daily cessation education. 7. Hypertension. Continue with the same management. 8. Dyslipidemia. Continue with Crestor. cc: Dick Turcios MD
[2019-10-14] MEDS ORDERED: LANTUS INSULIN SUBQ SCH (09:00)
[2019-10-14] MEDS: XOPENEX NEB INH SCH ×3 (09:52→22:45)
[2019-10-14] MEDS: ENTRESTO 24 MG-26 MG TABLET PO SCH (20:41)
[2019-10-14] MEDS: ZITHROMAX 500 MG/NS 500 MG/250 ML IVPB IV SCH (20:42)
[2019-10-15 06:15] LABS: BASO# 0.02 X1000 (0.0-0.2); BASO% 0.2 % (0.0-0.8); EOS# 0.12 X1000 (0.0-0.7); HEMATOCRIT 56.6 % (42.0-52.0); HEMOGLOBIN 18.8 g/dL (14.0-18.0); IMM GRAN# 0.12 X1000 (0.0-0.04); LYMPH# 4.28 X1000 (1.2-3.4); LYMPH% 37.3 % (20.5-51.1); MCH 29.8 PG (27-31); MCHC 33.2 g/dL (33-37); MCV 89.8 FL (81-99); MONO# 1.03 X1000 (0.11-0.59); MPV 10.6 FL (7.4-10.4); NEUT# 5.91 X1000 (1.4-6.5); NEUT% 51.5 % (42.2-75.2); PLT 216 X1000 (130-400); RDW 14.3 % (11.5-14.5); WBC 11.48 X1000 (4.8-10.8)
[2019-10-15 06:34] LABS: AGAP 9; BUN 20 mg/dL (8-22); CALCIUM 8.7 mg/dL (8.8-10.2); CHLORIDE 99 mmol/L (98-107); COSMO 290; CREATININE 1.1 mg/dL (0.7-1.2); ESTIMATED GFR > 60; GLUCOSE 139 mg/dL (70-104); MAGNESIUM 1.8 mg/dL (1.5-2.7); POTASSIUM 3.5 mmol/L (3.5-5.1); SODIUM 143 mmol/L (136-145); TCO2 35 mmol/L (25-35)
[2019-10-15] MEDS: HUMULIN R SUBQ SCH ×2 (06:49→11:13)
[2019-10-15] MEDS: LOVENOX SUBQ SCH (08:25)
[2019-10-15] MEDS: COREG PO SCH (08:25)
[2019-10-15] MEDS: NICODERM PATCH TD SCH (08:26)
[2019-10-15] MEDS: ENTRESTO 24 MG-26 MG TABLET PO SCH (08:26)
[2019-10-15] MEDS: ASPIRIN PO SCH (08:26)
[2019-10-15] MEDS: ROCEPHIN 1 GM in NS 50 ML IV SCH ×2 (08:26→09:06)
[2019-10-15] MEDS: CRESTOR PO SCH (08:26)
[2019-10-15] MEDS: MUCOMYST 20% PO SCH (08:31)
[2019-10-15 08:42] VITALS: BP 156/91
[2019-10-15] MEDS ORDERED: LASIX PO SCH (09:00)
[2019-10-15] MEDS ORDERED: LANTUS INSULIN SUBQ SCH (09:00)
[2019-10-15] MEDS: XOPENEX NEB INH SCH (10:44)
--- NOTE | 2019-10-16 00:41 | DISCHARGE SUMMARY ---
ADMISSION DATE: 10/10/2019 DISCHARGE DATE: 10/15/2019 DISCHARGE DIAGNOSES: 1. Congestive heart failure exacerbation with an echocardiogram that showed an ejection fraction of 40%, but also he had a cardiac catheterization that showed an ejection fraction lower than that, around 25%. 2. Chest pain that has been actually happening before admission. 3. Acute kidney injury, resolved. 4. Type 2 diabetes with a hemoglobin A1c of 8.8. 5. Chronic obstructive pulmonary disease exacerbation, resolved. 6. Tobacco abuse. 7. Hypertension. 8. Dyslipidemia. PROCEDURES PERFORMED: 1. Chest x-ray dated 10/10/2019. Impression: Mild bilateral interstitial edema. CT angiogram of the chest dated 10/10/2019. Impression: Minimal interstitial edema at the lung bases and trace bilateral pleural effusion with adjacent atelectasis, no evidence of pulmonary embolism. Echocardiogram dated 10/10/2019: Ejection fraction 40% with global hypokinesis. 2. Cardiac catheterization dated 10/13/2019. Summary: Severe 1 vessel coronary artery disease with significant stenosis of the circumflex, which is a small, non-dominant vessel. The LAD shows mild diffuse disease and the right coronary artery shows a 30 to 40% proximal plaque, enlarged left ventricular with severely impaired systolic function, ejection fraction 25 to 30%, significant diastolic dysfunction with elevated LVEDP at 33 to 34 mmHg, no mitral regurgitation and no aortic stenosis, unremarkable right femoral artery. HOSPITAL COURSE: A 59-year-old male with a past medical history of possible COPD. He does have diabetes, hypertension, tobacco use, presented to the emergency department with increase in shortness of breath. He was admitted on 10/10/2019. At the moment of admission, he denied fever, chest pain, productive cough, nausea, vomiting, diarrhea. His laboratory was grossly normal. He did have some wheezing on examination in the emergency room. He was given some Lasix for mild interstitial edema and the patient started resting more comfortably after getting his Lasix and nebulizer treatment. He was given a dose of steroids. He was admitted for further treatment. Upon questioning the patient carefully, it looks like he has been having chest pain on and off. We did an echocardiogram that showed a low ejection fraction of 40% with hypokinesis but Cardiology Department evaluated this patient and asked for a cardiac cath that showed a circumflex artery disease, some right coronary artery and LAD problems, but no severe problems. He received a short course of steroids and then they have been stopped, probably due to the Lasix. This patient's kidney suffered and he had an acute kidney injury that recovered after stopping the treatment. The Cardiology Department decided to treat this patient medically, but they need to follow this patient up closely and actually he has an appointment with Dr. Hamilton on 10/28/2019. I also recommended this patient to see 1 of our pulmonologists, Dr. Mendez. He will need to call for an appointment and probably his primary care physician, Dr. Smith needs to provide a referral to be able to see him since he has likely COPD. This patient is a smoker and we have been talking every single day about cessation. He seems to be feeling fine. His hemoglobin A1c is 8.8. I increased his dose of metformin to twice a day instead of once a day and I asked the dietitian to talk to him about his diet. The patient seems to be stable. He is tolerating p.o. He is ambulating. He has no problems today. No shortness of breath or chest pain. He will be discharged home with strict follow up by his primary care doctor, Cardiology Department, and hopefully he can get an appoint with Pulmonary Department as well. VITAL SIGNS: Temperature 98.2 degrees, pulse 87, respiratory rate 18, blood pressure 156/91, oxygen saturation 98 on room air. HEENT: Head normocephalic, no trauma, PERRLA. Neck is supple. No JVD. No masses. Central trachea. Chest: Decreased breath sounds globally with prolonged expiratory phase. No wheezing. Abdomen soft, nontender, nondistended. No hepatosplenomegaly. Extremities: No edema, no clubbing, no cyanosis. His right inguinal area looks fine from the procedure. Neurological examination: The patient is alert. He is oriented x3. No focal deficits. LABORATORY: WBC 11.4, hemoglobin 18.8, hematocrit 56.6, platelets 216,000. Sodium 143, potassium 3.5, chloride 99, bicarbonate 35, BUN 20, creatinine 1.1. Glucose 139, calcium 8.7, magnesium 1.8. DISCHARGE MEDICATIONS: Aspirin 81 mg p.o. daily, carvedilol 6.25 mg p.o. b.i.d., Lasix 20 mg p.o. daily, metformin 1000 mg p.o. b.i.d., Crestor 40 mg p.o. daily and Entresto 1 tablet p.o. b.i.d. cc: Dick Turcios MD
== END 2019-10-15 11:36 | disposition home or self-care (01) | DRG 287 ==
LOC: ED 02:30 → EDIPHOLD 02:31 → SUATTDRO 02:31 → EDIPHOLD 10:03 → 4N 14:16 → DIRADM 10-13 10:37 → 2N 10-13 12:50
PROVIDERS: ATTEND Internal Medicine